=== PATIENT | female | born 1960 | race Caucasian/White ===

== ENCOUNTER 2018-09-04 15:05 | Emergency (ER) | payer MEDICAID, SELFPAY ==
[2018-09-04 15:05] VITALS: BP 138/67; PULSE 64; RESP 14; TEMP 36.7; O2SAT 95; BMI 43.9
[2018-09-04 17:03] LABS: Absolute Lymphocyte Count 2.77 X10^3/ul (0.83-4.51); Absolute Neutrophil Count 4.7 X10^3/uL (2.0-7.7); Basophil# 0.04 X10^3/uL; Basophil% 0.5 % (0-1); Eosinophil# 0.19 X10^3/uL; Eosinophils% 2.3 % (0-5); Hematocrit 46.6 % (37-47); Hemoglobin 15.3 g/dl (12.0-15.0); Lymphocyte # 2.77 X10^3/ul (4.0); Lymphocyte % 33.5 % (19-41); Mean Corp Hgb Conc 32.8 g/gl (32-36); Mean Corpuscular Hgb 32.3 pg (27.0-32.0); Mean Corpuscular Volume 98.5 fL (81-99); Mean Platelet Vol. 9.5 fl (6.2-12.0); Monocyte# 0.55 X10^3/uL; Monocyte% 6.7 % (0-10); Neutrophil % 56.9 % (47-70); Platelet Count 290 K/mm3 (150-450); RBC Distribution Width CV 13.3 % (11.6-14.6); Red Blood Count 4.73 M/mm3 (4.2-5.4); White Blood Count 8.3 K/mm3 (4.4-11.0)
[2018-09-04 17:04] LABS: POSITIVE COUNT NO; POSITIVE DIFFERENTIAL NO; POSITIVE MORPHOLOGY NO
[2018-09-04 17:05] VITALS: BP 119/80; PULSE 58; RESP 16; TEMP 36.8; O2SAT 100; O2SAT 98
[2018-09-04 17:47] LABS: Bacteria 0 SEEN /hpf (None Seen); Mucous, Urine 0 SEEN /hpf (<or=2+); Red Blood Cells-Urine 0 SEEN /hpf (0-5); White Blood Cells 0 SEEN /hpf (0-5)
[2018-09-04 17:54] LABS: Color, Urine Yellow (Yellow); Glucose, Dipstick Normal (Normal); Ketone-Dipstick Negative (Negative); Leukocyte Esterase-Dipstick Negative /ul (Negative); Nitrite-Dipstick Negative (Negative); Occult Blood-Urine Negative /ul (Negative); Protein-Dipstick Negative (Negative); Urine Bilirubin Dipstick Negative (Negative); Urine Clarity Clear (Clear); Urine Urobilinogen Normal (Normal)
[2018-09-04 18:01] LABS: Anion Gap 7 (5-15); BUN 11 mg/dL (7-18); Calcium,Total 9.2 mg/dL (8.5-10.1); Chloride 101 mmol/L (98-107); Creatinine, Serum 0.84 mg/dL (0.55-1.02); EST Glomerular Filtration Rate 74 mL/min (>60); Est Glom Filt Rate - Afr Amer 89 mL/min (>60); Estimated Creatinine Clearance 58.44 ml/min; Glucose 107 mg/dL (74-106); Potassium 3.8 mmol/L (3.5-5.1); Sodium Level 136 mmol/L (136-145); Squamous Epithelial Cells - UA 0-5 SEEN /hpf (5-10)
[2018-09-04] MEDS: Ketorolac 15 MG/ML Vial IV (18:24)
[2018-09-04] MEDS: Morphine 2 MG/ML Syringe IV (20:10)
[2018-09-04] MEDS: Ondansetron 4 MG/2 ML Vial IV (20:10)
--- NOTE | 2018-09-04 20:15 | ED.RN ---
pt initially refused morphine but wants it now, she did however, want a half dose 2mg was given with ganesh gregory per Dr. Patrick, new orders placed.
--- NOTE | 2018-09-04 21:27 | ED.VISSUMM ---
- ER Visit Summary Date of Service: 09/04/18 Chief Complaint: Low back pain History of Present Illness: The patient is a 58 F who reports acute onset of low back pain after waking up from a nap. She denies bowel bladder dysfunction. Denies saddle paresthesia anesthesia. Denies radicular pain. Denies foot drop. Denies thigh weakness going up and down steps. She denies fever, chills or night sweats. She denies dysuria, frequency, urgency hematuria. She has known history of degenerative disc disease. She is status post laminectomy and fusion. She also reported diarrhea to the nurse. She is had intermittent episodes of constipation with normal stool and diarrhea for the past 3 months. She has a history of IBS. Please read written note for complete detail Physical Examination: Vital signs noted and unremarkable. BMI is 44. Head is atraumatic normocephalic. Pupils are equal round reactive. Extraocular muscles are intact. TMs are pearly white with landmarks noted. Nares patent with no drainage. Posterior pharynx without erythema or exudate. Uvula is midline. There is no dysphonia or dysphasia. Trachea is midline. There is no stridor with auscultation of the neck. Heart is regular without murmur, gallop or rub. S1 and S2 are normal. Lungs are clear to auscultation with good movement of air bilaterally. Abdomen is soft nontender. Bowel sounds are present normal. She has a midline incision low back that is well-healed without erythema, warmth induration. She has pain palpation of the paralumbar and central back. There is no pain the patient of the pelvis. Straight leg test is negative. Crossover test is negative. Patella and ankle reflex are 2+ and symmetric. EHL is intact. DP and PT pulses are palpable. Test Results: None Emergency Department Course and Treatment: Patient was medicated with IV Toradol, morphine and Zofran. When she was reassessed at 2119 she states she has had no improvement. Treatment Plan: Patient was told her back pain is secondary to degenerative disc disease. This is related to her weight. Disposition: Discharge to home to follow-up with her PCP Dr. Karlos Jcakson Impression: Acute low back pain without sciatica secondary to degenerative disc disease This note was generated with [employer] software. It may contain incorrect words, spelling, and punctuation that were not noted in review of the chart prior to signing ED Disposition - Plan for ED Patient: Disposition: Home or Assisted Living Chief Complaint: Abd Pain Instructions: ED Neck Back Pain General Referrals: Karlos Jackson III, MD [Primary Care Provider] - As Needed
== END 2018-09-04 21:41 | disposition home or self-care (01) ==
PROVIDERS: Emergency Provider Emergency Medicine; Family Provider Family Medicine; PCP Family Medicine
DX: M51.36 Other intervertebral disc degeneration, lumbar region (principal); E66.9 Obesity, unspecified; Z68.41 Body mass index [BMI] 40.0-44.9, adult; Z87.891 Personal history of nicotine dependence
CPT/HCPCS: 80048; 81001; 85025; 96374; 96375; 99283; A4216; J2405

== ENCOUNTER → 2020-04-24 | Outpatient (CLI) | payer MEDICAID, SELFPAY | END | disposition home or self-care (01) | LOC: MTDU 17:27 | PROVIDERS: PCP Family Medicine; Referring Provider Family Medicine; Visit Provider Family Medicine | DX: B34.9 Viral infection, unspecified (principal) | CPT/HCPCS: 87635; 94799; U0003 ==